=== PATIENT | male | born 1965 ===

== ENCOUNTER 2020-04-02 06:44 | Emergency (ER) | payer MEDICARE, MEDICAID ==
[2020-04-02] MEDS ORDERED: Lidocaine 1% 30 ML SDV INJECT ONE (07:50)
[2020-04-02] MEDS ORDERED: Diphtheria,Pertussis(Acell),Tetanus Vaccine 0.5 ML SDV IM ONE (08:23)
--- NOTE | 2020-04-03 07:28 | ER ---
REASON FOR EMERGENCY ROOM VISIT: Right hand laceration. HISTORY: This 55-year-old man came to the emergency room having suffered a laceration over the proximal aspect of his right 2nd finger. He apparently was sharpening knives and accidentally sustained a laceration over his knuckle. He is unaware of when he received his past tetanus booster. PHYSICAL EXAMINATION: Reveals a clean laceration into the subcutaneous tissue measuring approximately 3 cm in length over the dorsal aspect of his right hand immediately overlying the right 2nd MCP joint. There is no distal numbness and no evidence of tendon injury. FURTHER EMERGENCY ROOM COURSE: Suture repair of this was recommended and accepted. The wound was cleaned with surgical soap and then painted with Betadine. 1% Xylocaine without epinephrine was used for local anesthesia. Approximately 4 mL was required for this. Skin edges were approximated with 5 interrupted 4-0 monofilament nylon sutures, and antibiotic ointment was applied over this followed by a nonocclusive dressing. He was instructed regarding wound care symptoms and signs of infection and suture removal. All questions were answered. He was also given a TD booster. ABRAHAM/[place] /[id number]
== END 2020-04-02 08:30 | disposition home or self-care (01) ==
LOC: LB.ED 06:44
DX: S61.411A Laceration without foreign body of right hand, initial encounter (principal); Z23 Encounter for immunization; W26.0XXA Contact with knife, initial encounter
CPT/HCPCS: 12002; 90471; 90715; 99282; 99282-25; J2001